=== PATIENT | female | born 1990 | race American Indian/Alaskan Native ===

== ENCOUNTER 2016-07-03 14:38 | Outpatient (CLI) | payer MEDICAID ==
[2016-07-03] MEDS ORDERED: LACTATED RINGERS 500 ML IV ONE (14:46)
[2016-07-03 16:06] VITALS: BP 118/59
[2016-07-03 16:08] LABS: Urine Drugs of Abuse Note Disclamer
[2016-07-03 16:19] LABS: Bilirubin,Urine NEG (Negative); Blood,Urine NEG (Negative); Ketones,Urine NEG (Negative); Leukocyte Esterase,Urine NEG (Negative); Mucus,Urine FEW /HPF; Nitrite,Urine NEG (Negative); Protein,Urine <15 mg/dL mg/dL (Negative); RBC,Urine < 1.0 /HPF (0.0-6.0); Urobilinogen,Urine < 2.0 mg/dL (<2.0)
== END 2016-07-03 16:40 | disposition home or self-care (01) ==
LOC: TRG 14:38
PROVIDERS: ATTEND Obstetrics & Gynecology
DX: O47.03 False labor before 37 completed weeks of gestation, third trimester (principal); Z3A.29 29 weeks gestation of pregnancy
CPT/HCPCS: 80307; 81001

== ENCOUNTER 2016-07-04 05:03 | Outpatient (CLI) | payer MEDICAID ==
[2016-07-04] MEDS ORDERED: LACTATED RINGERS 500 ML IV ONE (05:19)
--- NOTE | 2016-07-04 07:26 | Progress Note ---
Assessment and Plan 26y/o @ 30 weeks per her EDC (our u/s this morning c/w dates). Pt was seen in triage yesterday for abd cramping while at work, evaluated and d/c'd home with precautions. She return this morning with spotting after void. She did have straight cath UA collected yesterday. u/s showed no s/s abruption, abd soft andnontender. Patient is not in any distress - watching videos and laughing with her friend at the bedside. CL 3.2 by u/s, no previa. SVE closed/ thick/high - no signs of bleeding old or new on glove, only white discharge. White glove shown to patient and reassured. Patient states she is going to Dr. Kilgore's office this morning. discharge home in stable condition. - Patient Problems (1) 30 weeks gestation of Current Visit: Yes Status: Acute (2) Vaginal spotting Current Visit: Yes Status: Resolved Plan to address problem: none seen, possibly from urethra d/t trauma from straight cath yesterday Subjective - Subjective Date of service: 07/04/16 Principal diagnosis: spotting @ 30wks, care in [place] not yet established in [place] Patient reports: vaginal bleeding (spotting after void last night) Objective - Vital Signs Vital Signs: Vital Signs - 12hr 07/04/16 07/04/16 07/04/16 05:31 05:36 05:41 Temperature Pulse Rate 90 107 H 94 H O2 Sat by Pulse 95 100 99 Oximetry 07/04/16 07/04/16 07/04/16 05:46 05:51 05:56 Temperature Pulse Rate 86 98 H 78 O2 Sat by Pulse 100 100 99 Oximetry 07/04/16 07/04/16 06:01 07:05 Temperature 98.7 F Pulse Rate 95 H O2 Sat by Pulse 100 Oximetry - Exam Cardiovascular: Regular rate Lungs: Clear to auscultation, Normal air movement Abdomen: Present: normal appearance, soft Vulva: both: normal (no active bleeding) Uterus: Present: normal FHR: auscultation normal, category 1 Uterine Contraction Monitor Mode: External Cervical Dilatation: 0 Cervical Effacement Percentage: 0 station: -4 Uterine Contraction Frequency (min): none Uterine Contraction Pattern: Absent Uterine Tone Measurement Phase: Resting Extremities: normal
--- NOTE | 2016-07-04 09:44 | Ultrasound Report ---
OB ULTRASOUND: HISTORY: Vaginal bleeding during . No care. TECHNIQUE: Transabdominal ultrasound with Doppler interrogation. Gestation: storm Position: cephalic Amniotic Fluid: WNL (7-24 cm) ANIL = 13.2 cm Placenta: anterior Placental Grade: I Heart Rate: 138 BPM Cervical length: 3.2 cm (Normal > 3 cm) NEUROANATOMY VISUALIZED: Choroid Plexus Lateral Ventricle ANATOMY VISUALIZED: Stomach Kidneys Bladder Diaphragm 4 Chamber Heart Heart 3 Vessel Cord SPINE VISUALIZED: Longitudinal BPD: 7.3 cm = 29 w 1 d HC: 25.9 cm = 28 w 1 d AC: 24.5 cm = 28 w 5 d FL: 5.6 cm = 29 w 3 d HC/AC Ratio: 1.06 Cephalic Index: 88.1 Estimated Weight: 1305 grams LMP: 1516 Clinical age = 30 w 0 d EDC: 09-12-17 US Gest. Age = 28 w 6 d EDC: 17 COMMENT: No evidence for abruption.
== END 2016-07-04 07:25 | disposition home or self-care (01) ==
LOC: TRG 05:03
PROVIDERS: ATTEND Obstetrics & Gynecology
DX: O46.93 Antepartum hemorrhage, unspecified, third trimester (principal); O77.9 Labor and delivery complicated by fetal stress, unspecified; Z3A.29 29 weeks gestation of pregnancy
CPT/HCPCS: 59025; 76805

== ENCOUNTER 2016-09-15 17:39 | Emergency (ER) | payer MEDICAID ==
[2016-09-15] MEDS ORDERED: XYLOCAINE 1% 20 mL INFILTRATI ONE (20:01)
[2016-09-15] MEDS ORDERED: NACL 0.9% IR ONE (20:01)
--- NOTE | 2016-09-15 20:43 | Emergency Department Report ---
ED General Adult HPI - General Chief complaint: Skin/Abscess/Foreign Body Stated complaint: A BOIL UNDER R ARM Time Seen by Provider: 09/15/16 19:54 Source: patient Mode of arrival: Ambulatory Limitations: No Limitations - History of Present Illness Initial comments: PT c/o boil under R arm that started yesterday. PT states she was dc'd from [facility] after having a vaginal delivery. PT states she also had a boil under her arm about 7 years ago and it had to be drained. Complaint: Boil Onset/Timin -: Gradual, days(s) Location: right Severity scale (0 -10): 8 Consistency: constant Improves with: none Worsens with: movement Associated Symptoms: denies: fever/chills - Related Data Allergies Allergy/AdvReac Type Severity Reaction Status Date / Time amoxicillin Allergy Hives Verified 07/03/16 14:45 ED Review of Systems ROS: Stated complaint: A BOIL UNDER R ARM Other details as noted in HPI Comment: All other systems reviewed and negative Constitutional: denies: chills, fever Respiratory: denies: cough Cardiovascular: denies: chest pain Skin: other (lump under R arm ) ED Past Medical Hx - Past Medical History Previous Medical History?: No Hx Hypertension: No Hx Diabetes: No Hx Deep Vein Thrombosis: No Hx Renal Disease: No Hx Sickle Cell Disease: No Hx Seizures: No Hx Asthma: No Hx HIV: No - Surgical History Past Surgical History?: No - Social History Smoking Status: Never Smoker Substance Use Type: None ED Physical Exam - General Limitations: No Limitations General appearance: alert, in no apparent distress - Head Head exam: Present: atraumatic, normocephalic - Eye Eye exam: Present: normal appearance. Absent: conjunctival injection - ENT ENT exam: Present: normal exam - Neck Neck exam: Present: normal inspection. Absent: tenderness, lymphadenopathy - Respiratory Respiratory exam: Present: normal lung sounds bilaterally. Absent: respiratory distress - Cardiovascular Cardiovascular Exam: Present: regular rate, normal rhythm - GI/Abdominal GI/Abdominal exam: Present: soft, other (rounded ). Absent: tenderness - Extremities Exam Extremities exam: Present: normal inspection, full ROM - Neurological Exam Neurological exam: Present: alert, altered - Psychiatric Psychiatric exam: Present: normal affect, normal mood - Skin Skin exam: Present: warm, dry, other (R axilla with fluculant abscess ) ED Course Vital Signs 09/15/16 18:26 Temperature 98.5 F Pulse Rate 80 Respiratory 18 Rate Blood Pressure 106/62 O2 Sat by Pulse 100 Oximetry - Reevaluation(s) Reevaluation #1: 09/15/16 21:15 PT tolerated the procedure well. pt has no questions at this time. - I & D Right Arm Type of Procedure: Simple Site: R axilla Blade Size: 11 I & D Procedure: betadine prep, sterile drapes applied, sterile dressing applied Progress: skin cleansed with betadine. 6 mls used to anesthetize the area. 11 blade used to make a superficial incision. moderate amount of purulent drainage. site was irrigated with NS. site not deep enough to pack. After site drained, pt had a decrease in pain. small mass palpable ant to I and D site. PT states she has always had a small bump under her arm. PT aware she may have hidradenitis and she will need to follow up with a surgeon. - Pulse Oximetry Interpretation Digit-Finger Initial Pulse Oximetry Readin Actions Taken: none ED Medical Decision Making - Differential Diagnosis abscess, cellulitis, Critical care attestation.: If time is entered above; I have spent that time in minutes in the direct care of this critically ill patient, excluding procedure time. ED Disposition Clinical Impression: Abscess of right axilla Disposition: DISCHARGED TO HOME OR SELFCARE Is pt being admited?: No Does the pt Need Aspirin: No Condition: Stable Instructions: Abscess Incision and Drainage (ED), Abscess (ED) Additional Instructions: Stop taking Keflex if you develop a rash Follow up with a Surgeon on Saturday IF you can not be seen, return to the ED for re-check Return sooner if fevers, chills, nausea, or vomiting. Referrals: JOSEPH MINOR MD [Primary Care Provider] - 3-5 Days Time of Disposition: 21:23
[2016-09-15] MEDS ORDERED: KEFLEX PO ONE (21:09)
[2016-09-15] MEDS ORDERED: MOTRIN PO ONE (21:09)
[2016-09-15 21:35] VITALS: BP 127/61
== END 2016-09-15 21:35 | disposition home or self-care (01) ==
LOC: ED 17:39
DX: L02.411 Cutaneous abscess of right axilla (principal); Z88.1 Allergy status to other antibiotic agents